=== PATIENT | male | born 1985 | race African-American/Black ===

== ENCOUNTER 2019-07-20 13:13 | Emergency (ER) | payer MEDICAID ==
[~2019-07-20] VITALS: Ht 182.9 cm; Wt 111.8 kg
--- NOTE | 2019-07-20 14:44 | NUR ---
MS CAME IN CO OF SOB, SWOLLEN ABD, AND SWOLLEN ANKLES. PT STATES HE HAS CHF AND HAS NOT TAKEN HIS MEDICATIONS IN THE PAST 4 DAYS BECAUSE HE HAS RUN OUT.
[2019-07-20 15:09] LABS: ALANINE AMINOTRANSFERASE 90 U/L (12-78); ALBUMIN 3.1 g/dL (3.4-5.0); ANION GAP 9 mmol/L (5-15); CALCIUM 8.9 mg/dL (8.5-10.1); CHLORIDE 110 mmol/L (98-107); CREATININE 1.34 mg/dL (0.7-1.3)
[2019-07-20 15:14] LABS: ALKALINE PHOSPHATASE 61 U/L (45-117); BILIRUBIN,TOTAL 0.8 mg/dL (0.2-1.0); TROPONIN I 0.029 ng/mL (0.000-0.045)
[2019-07-20 15:24] LABS: MD YES; MEAN CORPUSCULAR HEMOGLOBIN 23.3 pg (27.5-34.5); MEAN CORPUSCULAR HGB CONC 31.2 g/dL (33.2-36.2); MEAN CORPUSCULAR VOLUME 74.8 fL (81-97); MEAN PLATELET VOLUME 9.2 fL (7.4-10.4); PLATELET COUNT 381 x10^3/uL (130-400); RED CELL DISTRIBUTION WIDTH 25.1 % (9.4-14.8)
[2019-07-20 15:27] LABS: BASOS#(MANUAL) 0.14 x10^3/uL (0-0.1); BASOS% (MANUAL) 3 % (0-1); EOS#(MANUAL) 0.05 x10^3/uL (0.0-0.4); EOS% (MANUAL) 1 % (1-7); LYMPH#(MANUAL) 1.85 x10^3/uL (1-3.4); LYMPHS% (MANUAL) 41 % (22-44); MONOS#(MANUAL) 0.41 x10^3/uL (0.3-2.7); MONOS% (MANUAL) 9 % (2-9); SEG#(MANUAL) 2.07 x10^3/uL (1.8-6.8); SEGS% (MANUAL) 46 % (42-75)
[2019-07-20 15:28] LABS: <PLATELET ESTIMATE> ADEQUATE; ANISOCYTOSIS 1+; OVALOCYTES 1+; POLYCHROMASIA 1+; TARGET CELLS 1+
[2019-07-20 15:29] LABS: LARGE PLATELETS 1+
[2019-07-20 15:49] VITALS: BP 151/106
--- NOTE | 2019-07-20 15:49 | NUR ---
PT RESTING IN HOSPITAL BED. AWAITING LAB RESULTS.
[2019-07-20] MEDS ORDERED: FUROSEMIDE 40 MG TABLET ONE (16:42)
[2019-07-20] MEDS ORDERED: FUROSEMIDE 10 MG/ML ORAL SOL PO SCH (17:30)
[2019-07-20] MEDS ORDERED: FUROSEMIDE 10 MG/ML ORAL SOL PO ONE (18:00)
== END 2019-07-20 17:38 | disposition home or self-care (01) ==
LOC: ED 17:30
DX: R60.0 Localized edema (principal); I11.0 Hypertensive heart disease with heart failure; I50.9 Heart failure, unspecified; R19.00 Intra-abdominal and pelvic swelling, mass and lump, unspecified site; R05 Cough; R06.02 Shortness of breath; Z87.891 Personal history of nicotine dependence
CPT/HCPCS: 36415; 71045; 80053; 83880; 84484; 85025; 93005; 99284

== ENCOUNTER 2021-02-06 20:54 | Inpatient (IN) | payer MEDICAID, OTHER ==
[~2021-02-06] VITALS: Ht 182.9 cm; Wt 107.7 kg
[2021-02-06 23:14] LABS: BASOPHILS % (AUTO) 1 % (0-1); EOSINOPHILS % (AUTO) 3 % (1-7); LYMPHOCYTES % (AUTO) 22 % (22-44); MEAN CORPUSCULAR HGB CONC 33.2 g/dL (33.2-36.2); MEAN PLATELET VOLUME 8.1 fL (7.4-10.4); MONOCYTES % (AUTO) 10 % (2-9); NEUTROPHILS % (AUTO) 64 % (42-75); PLATELET COUNT 261 x10^3/uL (130-400); RED BLOOD COUNT 4.45 x10^6/uL (4.38-5.82); RED CELL DISTRIBUTION WIDTH 18.4 % (9.4-14.8)
[2021-02-06 23:21] LABS: CHLORIDE 100 mmol/L (98-107)
[2021-02-06 23:30] LABS: ALANINE AMINOTRANSFERASE 17 U/L (12-78); ALBUMIN 1.8 g/dL (3.4-5.0); ALKALINE PHOSPHATASE 165 U/L (45-117); ANION GAP 10 mmol/L (5-15); BILIRUBIN,TOTAL 1.3 mg/dL (0.2-1.0); CALCIUM 7.7 mg/dL (8.5-10.1); CREATININE 1.16 mg/dL (0.7-1.3); TOTAL PROTEIN 6.3 g/dL (6.4-8.2)
[2021-02-07] VITALS (8 sets, daily range): BP systolic 85–118; BP diastolic 45–79
--- NOTE | 2021-02-07 00:01 | NUR ---
[employer]: PT WHEELED BACK FROM LOBBY.
--- NOTE | 2021-02-07 00:15 | NUR ---
CC OF BODY ACHES AND TIGHTNESS IN CHEST "FROM MY ASTHMA". PT SHORT TEMPERED, ANNOYED AT RN DURING ASSESSMENT. REFUSED TO TAKE OFF SWEATSHIRT FOR BP READING AND DEMANDING BLANKETS. PT ALSO STATES HE CANNOT REMEMBER IF HE HAS BEEN VACCINATED FOR COVID OR NOT AND SEEMS UNSURE ABOUT A LOT OF HIS PERSONAL INFORMATION.
[2021-02-07] MEDS ORDERED: POTASSIUM CHLORIDE 20 MEQ TAB.ER.PRT ONE (00:36)
[2021-02-07] MEDS ORDERED: NS + 20MEQ KCL 1,000 ML IV ONE (00:36)
[2021-02-07 00:47] LABS: TROPONIN I < 0.015 ng/mL (0.000-0.045)
--- NOTE | 2021-02-07 00:59 | NUR ---
REFUSING IV AT THIS TIME. PT REQUESTED RN TRY IN HAND AND FA WHERE NO VEINS WERE PRESENT AND IS REFUSING TO LET RN TRY IN AC WHERE VEINS FEEL MORE PRESENT. PT STATES " CAN WE WAIT A SECOND?" FOR IV START. PO POTASSIUM ADMINISTERED.
[2021-02-07] MEDS ORDERED: POTASSIUM CHLORIDE 20 MEQ TAB.ER.PRT PO ONE ×2 (01:00→04:00)
[2021-02-07] MEDS ORDERED: POTASSIUM CHLORIDE 20 MEQ in SODIUM CHLORIDE 0.9% 250 ML IV ONE (01:00)
--- NOTE | 2021-02-07 01:08 | NUR ---
PT REPORTS DRINKING COKE WHILE IN LOBBY. BS LOW, SPRITE GIVEN.
[2021-02-07] MEDS ORDERED: FURO-93 PO (02:03)
--- NOTE | 2021-02-07 02:07 | NUR ---
PT GIVEN URINAL
--- NOTE | 2021-02-07 02:37 | NUR ---
REPORT GIVEN TO WINIFRED GOTTLIEB
[2021-02-07] MEDS ORDERED: ACETAMINOPHEN 325 MG TABLET PO PRN (04:00)
[2021-02-07] MEDS ORDERED: GUAIFENESIN/DM 200-20MG, 10ML UDC PO PRN (04:00)
[2021-02-07] MEDS ORDERED: FUROSEMIDE 40 MG/4 ML IVPush SCH (04:00)
[2021-02-07] MEDS ORDERED: POLYETHYLENE GLYCOL 17 GM PACKET PO PRN (04:00)
[2021-02-07] MEDS ORDERED: NITROGLYCERIN 0.4 MG BOTTLE (25 TABS) SL PRN (04:00)
[2021-02-07] MEDS ORDERED: MELATONIN 5 MG TABLET PO PRN (04:00)
[2021-02-07] MEDS ORDERED: ONDANSETRON 2MG/ML, 2ML IVPush PRN (04:00)
[2021-02-07] MEDS ORDERED: NITROGLYCERIN 0.4 MG/SPRAY SL PRN (04:00)
[2021-02-07] MEDS ORDERED: LABETALOL 5MG/ML, 20ML IVPush PRN (04:00)
[2021-02-07] MEDS: ASPIRIN 81 MG TABLET EC PO SCH (05:10)
[2021-02-07 05:27] LABS: BASOPHILS % (AUTO) 5 % (0-1); EOSINOPHILS % (AUTO) 3 % (1-7); LYMPHOCYTES % (AUTO) 32 % (22-44); MEAN CORPUSCULAR HEMOGLOBIN 28.7 pg (27.5-34.5); MEAN CORPUSCULAR HGB CONC 32.8 g/dL (33.2-36.2); MONOCYTES % (AUTO) 12 % (2-9); NEUTROPHILS % (AUTO) 48 % (42-75); PLATELET COUNT 274 x10^3/uL (130-400); RED BLOOD COUNT 4.67 x10^6/uL (4.38-5.82); RED CELL DISTRIBUTION WIDTH 18.4 % (9.4-14.8)
[2021-02-07 05:37] LABS: ANION GAP 7 mmol/L (5-15); CHLORIDE 100 mmol/L (98-107); CHOLESTEROL, TOTAL 101 mg/dL (140-239)
[2021-02-07 05:47] LABS: CALCIUM 8.1 mg/dL (8.5-10.1); CHOL/HDL RATIO 2.2; CREATININE 1.22 mg/dL (0.7-1.3); HDL CHOL % 45 % (26-37); HDL CHOLESTEROL (DIRECT) 45 mg/dL (40-60); LDL CHOLESTEROL,CALCULATED 42 mg/dL (54-169); LDL/HDL RATIO 0.9 (0.5-3.0); TRIGLYCERIDES 71 mg/dL (50-200); VLDL CHOLESTEROL 14 mg/dL (0-25)
[2021-02-07 05:48] LABS: TROPONIN I < 0.015 ng/mL (0.000-0.045)
[2021-02-07] MEDS ORDERED: CARVEDILOL 3.125 MG TABLET PO SCH (06:00)
[2021-02-07] MEDS ORDERED: INSULIN LISPRO 100 UNITS/ML, PEN SQ-INSULIN SCH (07:00)
[2021-02-07] MEDS ORDERED: MAGNESIUM SULFATE PMX 2GM/50ML 50 ML IV ONE (08:30)
[2021-02-07] MEDS ORDERED: POTASSIUM CHLORIDE 20 MEQ TAB.ER.PRT PO SCH (09:00)
[2021-02-07] MEDS ORDERED: FUROSEMIDE 20 MG/2 ML IVPush SCH (09:00)
[2021-02-07 10:07] LABS: TROPONIN I < 0.015 ng/mL (0.000-0.045)
[2021-02-07] MEDS: ALBUMIN HUMAN 25% 100 ML IV SCH ×2 (12:32→17:58)
[2021-02-07] MEDS ORDERED: LIDOCAINE 1%, 10ML ONE (16:22)
[2021-02-07] MEDS ORDERED: FUROSEMIDE 20 MG/2 ML IV SCH (17:00)
[2021-02-07] MEDS: FUROSEMIDE 20 MG/2 ML IV SCH (17:00)
[2021-02-07] MEDS: CARVEDILOL 3.125 MG TABLET PO SCH (17:52)
[2021-02-07] MEDS ORDERED: ATORVASTATIN 80 MG TABLET PO SCH (21:00)
[2021-02-08] MEDS: ALBUMIN HUMAN 25% 100 ML IV SCH ×2 (00:03→06:11)
[2021-02-08 00:16] VITALS: BP 98/62
[2021-02-08] MEDS: ASPIRIN 81 MG TABLET EC PO SCH (05:40)
[2021-02-08] MEDS: CARVEDILOL 3.125 MG TABLET PO SCH (05:46)
[2021-02-08] MEDS: FUROSEMIDE 20 MG/2 ML IV SCH (07:30)
[2021-02-08 08:50] VITALS: BP 89/62
[2021-02-08] MEDS ORDERED: MAGNESIUM SULFATE PMX 2GM/50ML 50 ML IV ONE (09:00)
[2021-02-08] MEDS ORDERED: MAGNESIUM CHLORIDE 64 MG TABLET.DR PO SCH (09:00)
[2021-02-08] MEDS ORDERED: POTASSIUM CHLORIDE 20 MEQ TAB.ER.PRT PO ONE (09:00)
[2021-02-08 10:28] LABS: ANION GAP 6 mmol/L (5-15); CALCIUM 8.2 mg/dL (8.5-10.1); CHLORIDE 102 mmol/L (98-107); CREATININE 1.36 mg/dL (0.7-1.3)
[2021-02-08] MEDS ORDERED: APIXABAN 5 MG TABLET PO SCH (10:30)
[2021-02-08] MEDS ORDERED: FURO40TA6 PO (12:15)
[2021-02-08] MEDS ORDERED: CARV3.1212 PO (12:15)
[2021-02-08] MEDS ORDERED: APIX5TAB PO (12:15)
[2021-02-08] MEDS ORDERED: SPIR25TA PO (12:15)
[2021-02-08] MEDS ORDERED: LOSA25TA2 PO (12:15)
[2021-02-08] MEDS ORDERED: MAGN400T26 PO (12:22)
[2021-02-08] MEDS ORDERED: POTA20TA91 PO (12:22)
[2021-02-09] MEDS ORDERED: POTASSIUM CHLORIDE 20 MEQ TAB.ER.PRT PO SCH (08:00)
== END 2021-02-08 13:58 | disposition home or self-care (01) | DRG 432 ==
LOC: ED 02-07 02:26 → EDIP 02-07 02:31 → 5SO 02-07 03:01
PROVIDERS: ADMIT Internal Medicine; ATTEND Internal Medicine
PROC: 0W9G3ZZ Drainage of Peritoneal Cavity, Percutaneous Approach (ICD-10-PCS; principal; 2021-02-07)
DX: K70.31 Alcoholic cirrhosis of liver with ascites (principal); I50.31 Acute diastolic (congestive) heart failure; I42.6 Alcoholic cardiomyopathy; I42.8 Other cardiomyopathies; K70.11 Alcoholic hepatitis with ascites; E11.9 Type 2 diabetes mellitus without complications; E87.6 Hypokalemia; F10.20 Alcohol dependence, uncomplicated; F17.200 Nicotine dependence, unspecified, uncomplicated; I25.10 Atherosclerotic heart disease of native coronary artery without angina pectoris; Z20.822 Contact with and (suspected) exposure to COVID-19; I11.0 Hypertensive heart disease with heart failure; Z79.01 Long term (current) use of anticoagulants
CPT/HCPCS: 36415; 82042; 89051; 96374; 99285; J3490; 49083; 71045; 80048; 80053; 80061; 83036; 83735; 83880; 84443; 84484; 85025; 93005; G0378; J1940; J3480; P9047; U0005; J3475; J7050; U0003